=== PATIENT | male | born 1960 | race Caucasian/White ===

== ENCOUNTER 2020-10-18 09:00 | Outpatient (CLI) | payer OTHER, SELFPAY ==
--- NOTE | ~2020-10-18 | NM_ITS ---
EXAMINATION: NM stress w perf spect multi DATE: 10/18/2020 11:49 INDICATION: Chest pain. Diabetes mellitus. TECHNIQUE: Rest images were obtained following intravenous administration of 9.5 mCi Tc99m tetrofosmi n ([email or web address]). The patient performed an exercise activity. At peak exercise, 89.1 mCi Tc99m tetrofosmin ([employer]) was administered intravenously, and stress images were obtained. Data was reconstructed in to short axis and horizontal and vertical long axis SPECT images. Gated SPECT images were also obtain ed. COMPARISON: None. FINDINGS: There is normal left ventricular perfusion without definite evidence of reversible or fixed perfusion abnormality to suggest ischemia or infarction. There is normal left ventricular chamber size, wall motion and ejection fraction. Left ventricular ejection fraction measures 67%. IMPRESSION: 1. Normal myocardial perfusion at rest and during stress. 2. Left ventricular ejection fraction measuring 67%. Reviewed, dictated and finalized at location A.
--- NOTE | 2020-10-18 09:13 | EST_ITS ---
Patient Info Name: Gerald Oscar Age: 59 years : 1960 Gender: Male Ht: 73 in Wt: 233 lbs BSA: 2.36 m2 Exam Date: 10/18/2020 10:19 AM Exam Location: [facility] Stress Patient Status: Outpatient Admit Date: 10/18/2020 Staff Ordering Physician: Antoni Vaqsuez DO Attending Provider: Antoni Vasquez DO Exercise Technologist: Harmony Bernal RDCS Exercise Physician: Bennett Zhu DO Exam Type: CA stress test treadmill w NM Study Info Indications R00.2 - Palpitations A nuclear stress test was performed. A nuclear stress test was performed. Summary 1. 1. Negative Lance exercise stress test for ischemic ST changes by ECG criteria. 2. 2. Good functional capacity, achieving 10 METs of workload. 3. 3. Baseline hypertension with hypertensive response to exercise. 4. 4. Appropriate HR response to exercise. 5. 5. Appropriate HR recovery at 1 minute post exercise. 6. 6. Nuclear scan to follow and will be reported separately. Please correlate with it. 7. 7. Patient informed of the above results. Protocol: Lance Stress ECG Details Stage: REST Duration (min): 9 min : 58 sec Speed (mph): 0.0 Grade (%): 0 HR (bpm): 77 SBP (mmHg): 158 DBP (mmHg): 90 METS: --- Stage: REST Duration (min): 14 min : 51 sec Speed (mph): 0.0 Grade (%): 0 HR (bpm): 74 SBP (mmHg): 158 DBP (mmHg): 90 METS: --- Stage: STAGE 1 Duration (min): 1 min : 0 sec Speed (mph): 1.7 Grade (%): 10 HR (bpm): 93 SBP (mmHg): 158 DBP (mmHg): 90 METS: --- Stage: STAGE 1 Duration (min): 2 min : 0 sec Speed (mph): 1.7 Grade (%): 10 HR (bpm): 98 SBP (mmHg): 158 DBP (mmHg): 90 METS: --- Stage: STAGE 1 Duration (min): 3 min : 0 sec Speed (mph): 1.7 Grade (%): 10 HR (bpm): 102 SBP (mmHg): 158 DBP (mmHg): 90 METS: --- Stage: STAGE 2 Duration (min): 1 min : 0 sec Speed (mph): 2.5 Grade (%): 12 HR (bpm): 105 SBP (mmHg): 158 DBP (mmHg): 90 METS: --- Stage: STAGE 2 Duration (min): 2 min : 0 sec Speed (mph): 2.5 Grade (%): 12 HR (bpm): 111 SBP (mmHg): 213 DBP (mmHg): 84 METS: --- Stage: STAGE 2 Duration (min): 3 min : 0 sec Speed (mph): 2.5 Grade (%): 12 HR (bpm): 114 SBP (mmHg): 213 DBP (mmHg): 84 METS: --- Stage: STAGE 3 Duration (min): 1 min : 0 sec Speed (mph): 3.4 Grade (%): 14 HR (bpm): 125 SBP (mmHg): 218 DBP (mmHg): 96 METS: --- Stage: STAGE 3 Duration (min): 2 min : 0 sec Speed (mph): 3.4 Grade (%): 14 HR (bpm): 130 SBP (mmHg): 218 DBP (mmHg): 96 METS: --- Stage: STAGE 3 Duration (min): 3 min : 0 sec Speed (mph): 3.4 Grade (%): 14 HR (bpm): 138 SBP (mmHg): 235 DBP (mmHg): 94 METS: --- Stage: STAGE 4 Duration (min): 0 min : 22 sec Speed (mph): 4.2 Grade (%): 16 HR (bpm): 141 SBP (mmHg): 235
--- NOTE | 2020-10-21 16:58 | WPDHOLTEREM ---
Holter/Event Monitor Holter/Event Monitor Date of procedure: 10/18/20 Procedure Type: 48 hour holter monitor Indications: Palpitations Conclusion: 1. 48 hour holter monitor on 10/18/20. 2. Underlying rhythm is sinus rhythm. HR range 60-109 bpm; average HR 84 bpm. 3. There are 23 premature supraventricular complexes and 1 supraventricular triplet. No supraventricular tachycardia. 4. There are 189 premature ventricular complexes. No ventricular tachycardia. 5. No sinoatrial or atrioventricular blocks. No significant pauses greater than 2 seconds. 6. No symptoms availaable for correlation.
== END 2020-10-18 09:01 | disposition home or self-care (01) ==
PROVIDERS: PCP Internal Medicine; Visit Provider Internal Medicine
DX: E11.9 Type 2 diabetes mellitus without complications (principal); R07.89 Other chest pain; R00.2 Palpitations
CPT/HCPCS: 78452; 93017; 93225; 93226; A9502

== ENCOUNTER 2022-09-08 15:33 | Outpatient (CLI) | payer BC, SELFPAY ==
[2022-09-08 15:45] LABS: Basophils Percent Auto 0.5 % (0.2-1.2); Eosinophils Absolute Auto 0.1 K/mm3 (0-0.3); Eosinophils Percent Auto 1.9 % (0-4.4); Hematocrit 47.5 % (42.0-52.0); Immature Granulocyte Absolute 0.02 K/mm3 (0.00-0.031); Immature Granulocyte Percent A 0.5 % (0-0.5); Lymphocytes Absolute Auto 0.97 K/mm3 (0.9-3.2); Lymphocytes Percent Auto 22.9 % (18.3-44.2); Mean Corpuscular HGB Conc 33.7 g/dl (32-36); Mean Corpuscular Hemoglobin 30.9 pg (26-34); Mean Corpuscular Volume 91.9 fl (80-100); Mean Platelet Volume 9.3 fl (7.4-10.4); Monocytes Absolute Auto 0.6 K/mm3 (0.1-0.6); Monocytes Percent Auto 13.4 % (2.6-8.5); Neutrophils Absolute Auto 2.6 K/mm3 (1.3-6.7); Neutrophils Percent Auto 60.8 % (45.5-73.1); Platelet Count Result 196 k/mm3 (150-375); Red Blood Count 5.17 M/mm3 (4.6-6.20); White Blood Count 4.2 K/mm3 (4.5-10.0)
[2022-09-08 17:38] LABS: Alanine Aminotransferase 27 U/L (6-50); Albumin Level 4.2 g/dL (3.5-5.1); Alkaline Phosphatase 47 U/L (38-126); Anion Gap 6 mmol/L (8-16); Aspartate Amino Transferase 41 U/L (17-59); Bilirubin,Total 0.5 mg/dL (0.2-1.3); Blood Urea Nitrogen 16 mg/dL (9-20); Calcium 8.8 mg/dL (8.4-10.2); Carbon Dioxide 26 mmol/L (22-30); Chloride 105 mmol/L (98-107); Estimated Glomerular Filt Rate > 60; Glucose 141 mg/dL (65-110); Potassium 4.5 mmol/L (3.4-5.0); Sodium 137 mmol/L (137-145)
[2022-09-08 18:44] LABS: Folic Acid 10.9 ng/mL (2.76->20)
[2022-09-11 08:42] LABS: Methylmalonic Acid 321 nmol/L (87-318)
== END 2022-09-08 15:34 | disposition home or self-care (01) ==
LOC: ANHLAB 15:33
PROVIDERS: PCP Internal Medicine; Visit Provider Internal Medicine Hematology & Oncology
DX: D72.819 Decreased white blood cell count, unspecified (principal)
CPT/HCPCS: 36415; 80053; 82607; 82746; 83921; 85025; 86038; 88184

== ENCOUNTER 2022-09-22 07:53 | Outpatient (CLI) | payer BC, SELFPAY ==
--- NOTE | ~2022-09-22 | US_ITS ---
EXAMINATION: US abdomen complete DATE: 09/22/2022 08:34 INDICATION: Leukopenia TECHNIQUE: Multiple grayscale and Doppler ultrasound images of the abdomen were obtained. COMPARISON: None available FINDINGS: The pancreas is obscured by bowel gas. The liver demonstrates increased echogenicity, heter ogenous echotexture, and decreased through transmission. There appear to be areas of focal fatty spar ing in the liver. No surface nodularity. Normal hepatopetal flow in the main portal vein. The gallbla dder is normal with no abnormal wall thickening, pericholecystic fluid or stones. The normal common b ile duct measures 6 mm. There was no sonographic Hernández sign. The visualized portions of the aorta an d inferior vena cava are normal. The spleen is normal in appearance and measures 12.9 cm. The right kidney measures 13.0 x 6.5 x 6.7 c m. The left kidney measures 13.2 x 6.8 x 4.9 cm. The kidneys demonstrate normal parenchymal echogenic ity. There is no hydronephrosis. IMPRESSION: 1. Diffuse hepatic steatosis. Reviewed, dictated and finalized at location A. THETIST
== END 2022-09-22 07:54 | disposition home or self-care (01) ==
PROVIDERS: PCP Internal Medicine; Visit Provider Internal Medicine Hematology & Oncology
DX: D72.819 Decreased white blood cell count, unspecified (principal); K76.0 Fatty (change of) liver, not elsewhere classified
CPT/HCPCS: 76700

== ENCOUNTER 2023-02-05 11:47 | Outpatient (CLI) | payer BC, SELFPAY ==
[2023-02-05 13:27] LABS: Anion Gap 9 mmol/L (8-16); Blood Urea Nitrogen 21 mg/dL (9-20); Calcium 9.3 mg/dL (8.4-10.2); Carbon Dioxide 24 mmol/L (22-30); Chloride 102 mmol/L (98-107); Estimated Glomerular Filt Rate > 60; Glucose 169 mg/dL (65-110); Potassium 4.5 mmol/L (3.4-5.0); Sodium 135 mmol/L (137-145)
[2023-02-05 13:29] LABS: Basophils Percent Auto 0.4 % (0.2-1.2); Eosinophils Absolute Auto 0.1 K/mm3 (0-0.3); Eosinophils Percent Auto 1.6 % (0-4.4); Hematocrit 48.3 % (42.0-52.0); Hemoglobin 15.9 g/dL (14.0-18.0); Immature Granulocyte Absolute 0.04 K/mm3 (0.00-0.031); Immature Granulocyte Percent A 0.8 % (0-0.5); Lymphocytes Absolute Auto 0.93 K/mm3 (0.9-3.2); Lymphocytes Percent Auto 19.1 % (18.3-44.2); Mean Corpuscular HGB Conc 32.9 g/dl (32-36); Mean Corpuscular Hemoglobin 31.5 pg (26-34); Mean Corpuscular Volume 95.8 fl (80-100); Mean Platelet Volume 10.1 fl (7.4-10.4); Monocytes Absolute Auto 0.5 K/mm3 (0.1-0.6); Monocytes Percent Auto 10.5 % (2.6-8.5); Neutrophils Absolute Auto 3.3 K/mm3 (1.3-6.7); Neutrophils Percent Auto 67.6 % (45.5-73.1); Platelet Count Result 219 k/mm3 (150-375); Red Blood Count 5.04 M/mm3 (4.6-6.20); Red Cell Distribution Width 13.2 % (11.5-14.5); White Blood Count 4.9 K/mm3 (4.5-10.0)
[2023-02-05 14:33] LABS: Folic Acid > 20.0 ng/mL (2.76->20); Vitamin B12 > 1000.0 pg/mL (239-931)
[2023-02-09 16:20] LABS: Methylmalonic Acid 294 nmol/L (87-318)
== END 2023-02-05 11:48 | disposition home or self-care (01) ==
LOC: ANHLAB 11:50
PROVIDERS: PCP Internal Medicine; Visit Provider Internal Medicine Hematology & Oncology
DX: D72.819 Decreased white blood cell count, unspecified (principal)
CPT/HCPCS: 36415; 80048; 82607; 82746; 83921; 85025